=== PATIENT | male | born 1950 | race Caucasian/White ===

== ENCOUNTER 2016-10-12 09:00 | Emergency (ER) | payer OTHER ==
[~2016-10-12] VITALS: Ht 170.2 cm; Wt 86.0 kg
[~2016-10-12 09:00] MED LIST: CENTRUM COMPLE1 EACH PO; LO-DOSE ASPIRIN81 M1 PO; NORCO 5/3251 TABLET PO; NORVASC10 MG PO; PERCOCET 10/1 TABLET PO; PRAVACHOL20 MG PO; SUPER B-50 COM1 EACH PO; SYNTHROID100 MCG PO; SYNTHROID125 MCG PO; VITAMIN D31000 UNIT PO; VITAMIN E400 UNIT PO
[2016-10-12 10:16] LABS: EOSINOPHIL (%) 1.5 % (0-5); EOSINOPHIL COUNT 0.1 K/uL (0-0.3); HEMATOCRIT 44.6 % (38.0-50.0); LYMPHOCYTE COUNT 1.1 K/uL (1.0-2.8); MCH 31.1 PG (29.0-34.0); MCHC 34.5 G/DL (30.0-36.0); MCV 90.1 FL (86-99); MEAN PLAT.VOLUME 11.2 uM^3 (9.0-12.4); MONOCYTE (%) 8.6 % (3-12); MONOCYTE COUNT 0.4 K/uL (0-0.8); NEUTROPHIL (%) 66.6 % (45-76); NEUTROPHIL COUNT 3.1 K/uL (1.8-6.4); PLATELET COUNT 189 K/uL (156-360); RBC DIS.WIDTH-CV 12.6 % (11.8-14.6); RBC DIS.WIDTH-SD 40.3 % (39-53); RED BLOOD COUNT 4.95 M/uL (4.00-5.50); WHITE BLOOD COUNT 4.7 K/uL (4.1-10.2)
[2016-10-12 10:22] LABS: CHLORIDE 105 mEq/L (99-109); D-DIMER ELISA 0.28 mg/L FEU (< 0.57); POTASSIUM 3.9 mEq/L (3.7-5.4); SODIUM 139 mEq/L (136-147)
[2016-10-12 10:24] LABS: GLUCOSE 163 mg/dL (70-99)
[2016-10-12 10:25] LABS: ANION GAP 10 MEQ/L (2-14)
[2016-10-12 10:26] LABS: TOTAL BILIRUBIN 0.8 mg/dL (0.0-1.0)
[2016-10-12 10:28] LABS: ALKALINE PHOSPHATASE 86 IU/L (3-129); GFR ESTIMATE (CALCULATED) > 59 mL/min/
[2016-10-12 10:29] LABS: UREA NITROGEN (BUN) 20 mg/dL (9-23)
[2016-10-12] MEDS ORDERED: PERCOCET 5/31 TABLET PO (14:00)
[2016-10-12] MEDS ORDERED: BACLOFEN10 MG PO (14:00)
[2016-10-12 14:45] VITALS: BP 128/62
== END 2016-10-12 14:46 | disposition home or self-care (01) ==
LOC: EME 09:00
PROVIDERS: Emergency Medicine
DX: M54.6 Pain in thoracic spine (principal); E78.5 Hyperlipidemia, unspecified; I10 Essential (primary) hypertension; Z85.038 Personal history of other malignant neoplasm of large intestine
CPT/HCPCS: 71275; 80053; 85025; 85379; 99281; 99284; J2270; J2405

== ENCOUNTER → 2017-04-10 | Outpatient (CLI) | payer OTHER ==
[~2017-04-10] VITALS: Ht 170.2 cm; Wt 86.2 kg
[~2017-04-10] MED LIST changes: +BACLOFEN10 MG PO; +ENDOCET 5-3251 EACH PO; +PERCOCET 5/31 TABLET PO; +PRILOSEC20 MG PO
== END | disposition home or self-care (01) ==
LOC: AMB 07:56
DX: K86.2 Cyst of pancreas (principal); Z85.038 Personal history of other malignant neoplasm of large intestine; K21.9 Gastro-esophageal reflux disease without esophagitis; E78.5 Hyperlipidemia, unspecified; I10 Essential (primary) hypertension; E03.9 Hypothyroidism, unspecified; Z87.891 Personal history of nicotine dependence; K44.9 Diaphragmatic hernia without obstruction or gangrene; Z82.49 Family history of ischemic heart disease and other diseases of the circulatory system; Z82.5 Family history of asthma and other chronic lower respiratory diseases; Z83.3 Family history of diabetes mellitus; Z84.1 Family history of disorders of kidney and ureter
CPT/HCPCS: C1726; J0330; J0744; J1100; J2405; J3010